=== PATIENT | female | born 1950 | race Caucasian/White ===

== ENCOUNTER → 2018-07-11 07:15 | Outpatient (CLI) | payer MEDICARE, SELFPAY ==
--- NOTE | 2018-07-11 07:24 | US_ITS ---
STUDY: ABDOMINAL ULTRASOUND - RIGHT UPPER QUADRANT REASON FOR VISIT: Female, 68 years old. Right upper quadrant pain TECHNIQUE: Ultrasound evaluation of the right upper quadrant was performed with real-time and static kan-scale imaging. TECHNICAL QUALITY: Adequate. COMPARISON: None. FINDINGS: Liver: The liver measures 13.1 cm. There is normal echogenicity of the liver. The bile ducts are within normal limits. There is hepatic color flow. The direction of portal flow is hepatopetal. There is no demonstrated mass lesion. Gallbladder: Normal distended gallbladder. The gallbladder wall measures 2.7 mm. There is a negative sonographic Solitario's sign. There is no pericholecystic fluid. There are no gallstones. Common Bile Duct (C.B.D.): The common bile duct measures 3.7 mm. Pancreas: Normal size of the head, body and tail of the pancreas. There is normal echogenicity of the pancreas. There is no demonstrated pancreatic mass or cyst. Right Kidney: Normal size of the right kidney. The right kidney measures 11.7 x 3.8 x 3.9 cm. Normal renal cortex. The right cortex measures 1.5 cm. Anechoic 1.2 x 0.8 x 0.9 cm cyst. There is no right hydronephrosis. US/Abdomen Limited IMPRESSION: Right renal cyst. No cholelithiasis. Electronically Signed: Anuj Watkins, at 4:17 EDT Tel , Service support ,
== END ==
PROVIDERS: Family Provider Family Medicine; PCP Family Medicine; Referring Provider Family Medicine; Visit Provider Family Medicine
DX: R10.11 Right upper quadrant pain (principal)
CPT/HCPCS: 76705

== ENCOUNTER → 2018-07-25 10:44 | Outpatient (CLI) | payer MEDICARE, SELFPAY ==
--- NOTE | 2018-07-25 10:48 | NM_ITS ---
CLINICAL: 68-year-old female with reported history of right upper quadrant abdominal pain. RADIONUCLIDE HEPATOBILIARY SCINTIGRAPHY COMPARISON: Abdominal ultrasound report 07/11/2018 FINDINGS: Following the intravenous administration of 5.5 mCi of 99m Tc Mebrofenin, hepatobiliary images reveal: 1. Relatively prompt and homogeneous radiopharmaceutical concentration is noted by a normal sized liver. No parenchymal defects are identified. 2. Gallbladder activity is identified at 15 minutes post radiopharmaceutical administration. 3. Intestinal tract is not visualized during 60 minutes of sequential image acquisition. Small bowel is defined following the administration of the fatty meal. 4. Washout of the radiopharmaceutical by the hepatic parenchyma appears qualitatively normal. The patient was administered a fatty meal (8 ounces Boost). The post fatty meal ingestion gallbladder ejection fraction calculated at 30 minutes was noted to be 57.0 % (normal greater than 30%). NM/Hepatobilliary Img w/Pharm Int IMPRESSION: 1. NORMAL 99m Tc Mebrofenin hepatobiliary imaging examination with fatty meal ingestion. A. A gallbladder ejection fraction calculated to be greater than 30% following the administration of an ingested fatty meal makes the probability of functional hepatobiliary disease (gallbladder and/or sphincter of Oddi dyskinesia) and/or organic hepatobiliary disease (chronic acalculous cholecystitis and/or cystic duct syndrome) to be low. (Marcy and Abrahan, J Nucl Med 43: 1603, 2002). Electronically Signed: Andrzej Galdamez DO at 9:54 EDT Tel , Service support ,
== END ==
PROVIDERS: Family Provider Family Medicine; PCP Family Medicine; Referring Provider Family Medicine; Visit Provider Family Medicine
DX: R10.11 Right upper quadrant pain (principal)
CPT/HCPCS: 78227; A9537

== ENCOUNTER → 2018-08-13 09:52 | Outpatient (CLI) | payer MEDICARE, SELFPAY ==
[2018-08-08 14:22] VITALS: BMI 30.4
--- NOTE | 2018-08-13 14:43 | CT_ITS ---
STUDY: CT ABDOMEN AND PELVIS WITH CONTRAST REASON FOR EXAM: Female, 68 years old. Abdominal pain, right upper quadrant pain RADIATION DOSAGE (If Supplied By Facility): CTDIvol = ( 14.57 ) mGy, DLP = ( 874.43 ) mGycm TECHNIQUE: Transaxial images were obtained from the lower chest to the upper thighs with oral contrast. 100 ml of Isovue 300 contrast was administered. Sagittal and coronal images were reconstructed. Individualized dose optimization techniques were used for this CT. COMPARISON: Right upper quadrant ultrasound dated July 11, 2018; nuclear medicine biliary scan dated July 25, 2018 FINDINGS: There is a 1.3 cm calcified granuloma in the periphery of the left lower lobe. There is a 3 mm noncalcified opacity in the periphery of the right lower lobe, possible noncalcified granuloma. There is no pleural effusion. The heart is normal in size. There are a few small benign cysts scattered in the liver. The gallbladder and biliary system are unremarkable. The spleen is unremarkable. The pancreas is unremarkable. The adrenal glands are unremarkable. The right kidney is unremarkable. There is no dilatation of the collecting system in the right kidney. The left kidney is unremarkable. There is no dilatation of the collecting system in the left kidney. There is a small hiatal hernia. The small bowel is unremarkable. There are diverticula in the distal colon without adjacent stranding. There is marked stool throughout the colon. The appendix is visualized and appears normal. The aorta and branch vessels are unremarkable. The inferior vena cava is unremarkable. The retroperitoneum is unremarkable. There is no free fluid in the abdomen. The urinary bladder is unremarkable. The uterus is normal in appearance. There are no abnormal masses in the adnexal regions. There are small phleboliths scattered in the lower pelvis. The soft tissues of the abdominal wall are unremarkable. There are moderate degenerative changes in the lower lumbar spine. CT/Abdomen/Pelvis WITH Contrast IMPRESSION: No acute abnormalities are seen in the abdomen or pelvis. There are no acute bowel abnormalities. There is mild diverticulosis of the distal colon. There is marked stool throughout the colon. No acute abnormalities are seen in the right upper quadrant. The gallbladder is normal in appearance. There is no evidence of biliary ductal dilatation. There is no ascites, free air or significant lymphadenopathy. Electronically Signed: Rosita Auguste MD at 0:25 EST Tel Direct: [phone], Service support ,
[2018-08-13 15:26] LABS: CREATININE FINGERSTICK 0.8 mg/dL (0.55-1.02)
== END ==
PROVIDERS: Family Provider Family Medicine; PCP Family Medicine; Referring Provider Surgery; Visit Provider Surgery
DX: R10.9 Unspecified abdominal pain (principal)
CPT/HCPCS: 74177; Q9967

== ENCOUNTER 2018-08-22 05:30 | Day surgery (SDC) | payer MEDICARE, SELFPAY ==
[2018-08-08 14:22] VITALS: BMI 30.4
[2018-08-22] VITALS (8 sets, daily range): BP systolic 106–204; BP diastolic 63–106; PULSE 70–75; RESP 14–16; TEMP 36.1–36.2; O2SAT 96–100; BMI 29.2
--- NOTE | 2018-08-22 06:30 | IMM_PTH ---
PATIENT: KEATON SIFUENTES LOC: EN U#:[id number] AGE/SX: 68/F ROOM: RE08/22/[address]: Dr. Armen Cruz MD : 1950 BED: DIS: 08/22/2018 SPEC #: [id number] RECD: 08/22/18 12:32 STATUS: DEMARIO REQ #: [id number] FRANSISCO: 08/22/18 06:[address]: Armen Cruz DEPT: IMMUNOHISTOCHEMISTRY RECD BY: Sheba Bernardo ENTERED: 08/22/18 12:32 SP TYPE: IMMUNO OTHR DR: Dr. Daniel Gauthier MD Tissues: A - Stomach, NOS Procedures: H Pylori (initial) PHYSICIAN & INSTITUTION [place] [id number] SPECIMEN INFORMATION: Tissue Source: A - Antral biopsy Clinical Info: Epigastric pain, GERD Specimen Number: [id number] CPT code: 23416 METHODOLOGY: Deparaffinized sections of prefer/formalin-fixed tissue or PAP/DQ stained slides are incubated with monoclonal/polyclonal antibodies/oligonucleotide probes. Localization is made via biotin free immunoperoxidase method. Appropriate controls are performed and reacted as expected. Results on target cell population are indicated in the following table: RESULTS: ANTIBODY / CLONE RESULT Block A H Pylori (polyclonal) negative These tests were developed and their performance characteristics determined by [facility]. They may not have been cleared or approved by the U.S. Food and Drug Administration. The FDA has determined that such clearance or approval is not necessary. INTERPRETATION: A. Antral biopsy: Negative for Helicobacter pylori organisms. AM:hilda 08/23/18
--- NOTE | 2018-08-22 06:30 | EGD_PTH ---
PATIENT: KEATON SIFUENTES LOC: EN U#:[id number] AGE/SX: 68/F ROOM: RE08/22/[address]: Dr. Armen Cruz MD : 1950 BED: DIS: 08/22/2018 SPEC #: [id number] RECD: 08/22/18 08:55 STATUS: DEMARIO WENDY #: [id number] FRANSISCO: 08/22/18 06:[address]: Armen Cruz DEPT: SURGICAL PATHOLOGY RECD BY: Veronica Powell ENTERED: 08/22/18 11:14 SP TYPE: EGD BIOPSY OT DR: Dr. Daniel Gauthier MD Tissues: A - Gastric mucous membrane B - Esophageal mucous membrane C - Transverse colon Procedures: Surgery Specimen Level IV HEADER OPERATION: colonoscopy, EGD (MOD) PRE-OP DIAGNOSIS: Epigastric pain, GERD, screening TISSUE SUBMITTED: A. Antral biopsy for H. Pylori, B. Distal esophageal biopsy, C. Proximal transverse colon polyp biopsy MICROSCOPIC DIAGNOSIS A. Gastric antrum, biopsy: Mild chronic gastritis. B. Distal esophagus, biopsy: Focal changes of reflux. Gastroesophageal junctional mucosa with mild chronic inflammation. C. Proximal transverse colon polyp, biopsy: Fragments of hyperplastic polyp. AM:hilda 08/23/18 COMMENT The results of immunohistochemistry for Helicobacter pylori will be reported separately ([id number]). MICROSCOPIC DESCRIPTION Slides are reviewed. GROSS DESCRIPTION A - Received in fixative is one container labeled with the patient's name and designated antral biopsy. The specimen consists of one irregular fragment of light núñez soft tissue that measures 0.4 x 0.3 x 0.1 cm. The specimen is totally submitted in one cassette. B - Received in fixative is one container labeled with the patient's name and designated distal esophageal biopsy. The specimen consists of two irregular fragments of light núñez soft tissue that in aggregate measure 0.6 x 0.3 x 0.1 cm. The specimen is totally submitted in one cassette. C - Received in fixative is one container labeled with the patient's name and designated proximal transverse colon polyp biopsy. The specimen consists of multiple irregular fragments of núñez soft tissue that in aggregate measure 1 x 0.5 x 0.1 cm. The specimen is totally submitted in one cassette. / ERIN:hilda 08/22/18 TC:3 CPT: 08723 x3
--- NOTE | 2018-08-22 07:13 | OP.ENDO_ITS ---
Patient Name: Mary Corea Procedure Date: 08/22/2018 6:12 AM Date of : 1950 Age: 68 Procedure: Upper GI endoscopy Indications: Epigastric abdominal pain Providers: Armen Cruz MD Referring MD: Armen Cruz MD Medicines: Midazolam 3 mg IV, Meperidine 75 mg IV Complications: No immediate complications. Procedure: Pre-Anesthesia Assessment: - Prior to the procedure, a History and Physical was performed, and patient medications and allergies were reviewed. The patient's tolerance of previous anesthesia was also reviewed. The risks and benefits of the procedure and the sedation options and risks were discussed with the patient. All questions were answered, and informed consent was obtained. Prior Anticoagulants: The patient has taken no previous anticoagulant or antiplatelet agents. ASA Grade Assessment: II - A patient with mild systemic disease. After reviewing the risks and benefits, the patient was deemed in satisfactory condition to undergo the procedure. After obtaining informed consent, the endoscope was passed under direct vision. Throughout the procedure, the patient's blood pressure, pulse, and oxygen saturations were monitored continuously. The gastroscope was introduced through the mouth, and advanced to the second part of duodenum. The upper GI endoscopy was accomplished without difficulty. The patient tolerated the procedure well. Moderate Sedation: Moderate (conscious) sedation was personally administered by the endoscopist. The following parameters were monitored: oxygen saturation, heart rate, blood pressure, and response to care. Total physician intraservice time was 15 minutes. Scope In: 6:38:04 AM Scope Out: 6:44:43 AM Total Procedure Duration Time 0 hours 6 minutes 39 seconds Findings: LA Grade A (one or more mucosal breaks less than 5 mm, not extending between tops of 2 mucosal folds) esophagitis with no bleeding was found 39 cm from the incisors. Biopsies were taken with a cold forceps for histology. A small hiatal hernia was present. Diffuse mildly erythematous mucosa without bleeding was found in the gastric antrum. Biopsies were taken with a cold forceps for histology. Impression: - LA Grade A reflux esophagitis. Biopsied. - Small hiatal hernia. - Erythematous mucosa in the antrum. Biopsied. Recommendation: - Resume previous diet. - Use Prilosec (omeprazole) 40 mg PO daily. - Continue present medications. - Telephone my office for pathology results in 1 week. Procedure Code(s): --- Professional --- 17810, Esophagogastroduodenoscopy, flexible, transoral; with biopsy, single or multiple 21361, 59, Moderate sedation services provided by the same physician or other qualified health child daycare worker performing the diagnostic or therapeutic service that the sedation supports, requiring the presence of an independent trained observer to assist in the monitoring of the patient's level of consciousness and physiological status; initial 15 minutes of intraservice time, patient age 5 years or older Diagnosis Code(s): --- Professional --- K21.0, Gastro-esophageal reflux disease with esophagitis K44.9, Diaphragmatic hernia without obstruction or gangrene K31.89, Other diseases of stomach and duodenum R10.13, Epigastric pain CPT copyright 2017 [employer]. All rights reserved. The codes documented in this report are preliminary and upon cpc coder review may be revised to meet current compliance requirements. Armen Cruz MD 08/22/2018 7:12:52 AM This report has been signed electronically. Number of Addenda: 0 Note Initiated On: 08/22/2018 6:12 AM
--- NOTE | 2018-08-22 07:16 | OP.ENDO_ITS ---
Patient Name: Mary Corea Procedure Date: 08/22/2018 6:46 AM Date of : 1950 Age: 68 Procedure: Colonoscopy Indications: Epigastric abdominal pain Providers: Armen Cruz MD Referring MD: Armen Crzu MD Medicines: Midazolam 1 mg IV, Meperidine 25 mg IV Patient Profile: Last Colonoscopy: none. The patient's first colonoscopy is today. Complications: No immediate complications. Procedure: Pre-Anesthesia Assessment: - Prior to the procedure, a History and Physical was performed, and patient medications and allergies were reviewed. The patient's tolerance of previous anesthesia was also reviewed. The risks and benefits of the procedure and the sedation options and risks were discussed with the patient. All questions were answered, and informed consent was obtained. Prior Anticoagulants: The patient has taken no previous anticoagulant or antiplatelet agents. ASA Grade Assessment: II - A patient with mild systemic disease. After reviewing the risks and benefits, the patient was deemed in satisfactory condition to undergo the procedure. After I obtained informed consent, the scope was passed under direct vision. Throughout the procedure, the patient's blood pressure, pulse, and oxygen saturations were monitored continuously. The Colonoscope was introduced through the anus and advanced to the cecum, identified by appendiceal orifice and ileocecal valve. The colonoscopy was performed without difficulty. The patient tolerated the procedure well. The quality of the bowel preparation was good. The ileocecal valve was photographed. Moderate Sedation: Moderate (conscious) sedation was personally administered by the endoscopist. The following parameters were monitored: oxygen saturation, heart rate, blood pressure, and response to care. Total physician intraservice time was 15 minutes. Scope In: 6:47:40 AM Scope Withdrawal Time 0 hours 7 minutes 6 seconds Scope Out: 7:01:17 AM Total Procedure Duration Time 0 hours 13 minutes 37 seconds Findings: The perianal and digital rectal examinations were normal. A 4 mm polyp was found in the proximal transverse colon. The polyp was sessile. The polyp was removed with a cold biopsy forceps. Resection and retrieval were complete. Scattered diverticula were found in the sigmoid colon. The exam was otherwise without abnormality. Impression: - One 4 mm polyp in the proximal transverse colon, removed with a cold biopsy forceps. Resected and retrieved. - Diverticulosis in the sigmoid colon. - The examination was otherwise normal. Recommendation: - Discharge patient to home. - Resume previous diet. - Continue present medications. - Telephone my office for pathology results in 1 week. - Repeat colonoscopy in 5 years for surveillance. Procedure Code(s): --- Professional --- 16504, Colonoscopy, flexible; with biopsy, single or multiple 23904, 59, Moderate sedation services provided by the same physician or other qualified health career agent performing the diagnostic or therapeutic service that the sedation supports, requiring the presence of an independent trained observer to assist in the monitoring of the patient's level of consciousness and physiological status; initial 15 minutes of intraservice time, patient age 5 years or older Diagnosis Code(s): --- Professional --- D12.3, Benign neoplasm of transverse colon (hepatic flexure or splenic flexure) R10.13, Epigastric pain K57.30, Diverticulosis of large intestine without perforation or abscess without bleeding CPT copyright 2017 [employer]. All rights reserved. The codes documented in this report are preliminary and upon bonding machine setter review may be revised to meet current compliance requirements. Armen Cruz MD 08/22/2018 7:16:00 AM This report has been signed electronically. Number of Addenda: 0 Note Initiated On: 08/22/2018 6:46 AM
== END 2018-08-22 08:40 | disposition home or self-care (01) ==
LOC: EN 05:31 → AC 05:32
PROVIDERS: Family Provider Family Medicine; PCP Family Medicine; Referring Provider Surgery; Visit Provider Surgery
PROC: 0DJD8ZZ Inspection of Lower Intestinal Tract, Via Natural or Artificial Opening Endoscopic (ICD-10-PCS; CPT 45378; principal; 2018-08-22 06:25)
DX: K29.50 Unspecified chronic gastritis without bleeding (principal); K21.0 Gastro-esophageal reflux disease with esophagitis; K44.9 Diaphragmatic hernia without obstruction or gangrene; K31.89 Other diseases of stomach and duodenum; R10.13 Epigastric pain; D12.3 Benign neoplasm of transverse colon; K57.30 Diverticulosis of large intestine without perforation or abscess without bleeding; E03.9 Hypothyroidism, unspecified
CPT/HCPCS: 43239; 45380; 88305; 88342; 99152; 99153; J7120